=== PATIENT | male | born 1935 | race Two or more races ===

== ENCOUNTER 2018-09-11 11:30 | Inpatient (IN) | payer MEDICARE, BC ==
[~2018-09-11] VITALS: Ht 170.2 cm; Wt 60.8 kg
[2018-09-11 12:10] LABS: BASOPHILS % (AUTO) 0.5 % (0.0-2.0); EOSINOPHILS % (AUTO) 0.3 % (0.0-6.0); HEMATOCRIT 46 % (39-51); HEMOGLOBIN 15.2 g/dL (13.5-17.5); LYMPHOCYTES # (AUTO) 1.2 /CMM (0.8-4.8); LYMPHOCYTES % (AUTO) 12.9 % (20.0-44.0); MEAN CORPUSCULAR HGB CONC 33 g/dl (31.0-36.0); MEAN CORPUSCULAR VOLUME 96 fL (80-96); MONOCYTES # (AUTO) 0.7 /CMM (0.1-1.30); MONOCYTES % (AUTO) 6.8 % (2.0-12.0); NEUTROPHILS # (AUTO) 7.7 /CMM (1.8-8.9); NEUTROPHILS % (AUTO) 79.5 % (43.0-81.0); PLATELET COUNT (AUTO) 239 /CMM (150-450); RED BLOOD CELL COUNT(AUTO) 4.76 MIL/uL (4.5-6.0); WHITE BLOOD COUNT (AUTO) 9.7 K/uL (4.3-11.0)
[2018-09-11 12:20] LABS: CALCIUM, SERUM 8.8 mg/dL (8.5-10.1); CARBON DIOXIDE 30 mmol/L (21-32); CHLORIDE 104 mmol/L (98-107); CREATININE 0.7 mg/dL (0.6-1.3); GLUCOSE 103 mg/dL (74-106); POTASSIUM 3.9 mmol/L (3.5-5.1); SODIUM SERUM 140 mmol/L (136-145); UREA NITROGEN, BLOOD 17 mg/dL (7-18)
[2018-09-11 12:23] LABS: ALANINE AMINOTRANSFERASE 13 U/L (12-78); ALBUMIN 3.5 g/dL (3.4-5.0); ALCOHOL, BLOOD < 3 mg/dL (0-0); ALKALINE PHOSPHATASE 52 U/L (46-116); ASPARTATE AMINOTRANSFERASE 12 U/L (15-37); BILIRUBIN,DIRECT 0.1 mg/dL (0.0-0.2); BILIRUBIN,TOTAL 0.7 mg/dL (0.2-1.0); TOTAL PROTEIN, SERUM 7.3 g/dL (6.4-8.2)
[2018-09-11 12:24] LABS: ACETAMINOPHEN 0 ug/ml (10-30); SALICYLATE 0.9 mg/dL (2.8-20.0)
[2018-09-11 12:56] LABS: APPEARANCE,URINE CLEAR (CLEAR); BILIRUBIN,URINE NEGATIVE (NEGATIVE); BLOOD, URINE 1+ Ery/uL (NEGATIVE); COLOR,URINE YELLOW (YELLOW); KETONES,URINE NEGATIVE (NEGATIVE); LEUKOCYTE ESTERASE ,URINE NEGATIVE (NEGATIVE); NITRITE, URINE NEGATIVE (NEGATIVE); PH,URINE 6.5 (5.0-8.0); PROTEIN,URINE NEGATIVE (NEGATIVE); UGLUCOSE NEGATIVE (NEGATIVE); UROBILINOGEN,URINE 0.2 EU/dL (0.2)
[2018-09-11 13:22] LABS: BACTERIA,URINE Few /HPF (None Seen); SQUAMOUS EPITHELIAL CELL,UR Few /HPF (None Seen); WBC,URINE 0-2 /HPF (0-3)
[2018-09-11] MEDS ORDERED: MAG HYDROX/AL HYDROX/SIMETH 30 ML UDC PO PRN (14:30)
[2018-09-11] MEDS ORDERED: ACETAMINOPHEN 325 MG TABLET PO PRN (14:30)
[2018-09-11] MEDS ORDERED: MAGNESIUM HYDROXIDE 30 ML UDC PO PRN (14:30)
[2018-09-11] MEDS ORDERED: AMLO5TAB9 PO (14:32)
[2018-09-11 16:00] VITALS: BP 157/100
[2018-09-11] MEDS: LORAZEPAM 0.5 MG TABLET PO PRN (21:41)
[2018-09-11] MEDS: risperiDONE 1 MG TABLET PO SCH (22:00)
[2018-09-12 07:35] LABS: CHOLESTEROL 182 mg/dL (<200); HDL CHOLESTEROL 63 mg/dL (40-60); LDL 119 mg/dL (0-99); TRIGLYCERIDES 45 mg/dL (30-150)
[2018-09-12 07:36] LABS: ALANINE AMINOTRANSFERASE 17 U/L (12-78); ALBUMIN 3.9 g/dL (3.4-5.0); ALKALINE PHOSPHATASE 56 U/L (46-116); ASPARTATE AMINOTRANSFERASE 23 U/L (15-37); CALCIUM, SERUM 9.3 mg/dL (8.5-10.1); CARBON DIOXIDE 24 mmol/L (21-32); CHLORIDE 105 mmol/L (98-107); CREATININE 1.2 mg/dL (0.6-1.3); GLUCOSE 120 mg/dL (74-106); POTASSIUM 4.1 mmol/L (3.5-5.1); SODIUM SERUM 142 mmol/L (136-145); TOTAL PROTEIN, SERUM 7.7 g/dL (6.4-8.2); UREA NITROGEN, BLOOD 31 mg/dL (7-18)
[2018-09-12 08:00] VITALS: BP 122/73
[2018-09-12] MEDS: risperiDONE 1 MG TABLET PO PRN (09:02)
[2018-09-12] MEDS: AMLODIPINE BESYLATE 5 MG TABLET PO SCH (09:02)
[2018-09-12 16:00] VITALS: BP 103/76
[2018-09-12 19:43] VITALS: BP 129/71
[2018-09-12] MEDS: MIRTAZAPINE 15 MG TABLET PO SCH (21:48)
[2018-09-12] MEDS: risperiDONE 1 MG TABLET PO SCH (21:48)
[2018-09-12] MEDS: LORAZEPAM 0.5 MG TABLET PO PRN (23:13)
[2018-09-13 08:00] VITALS: BP 116/77
[2018-09-13] MEDS: AMLODIPINE BESYLATE 5 MG TABLET PO SCH (09:15)
[2018-09-13] MEDS: NITROFURANTOIN/NITROFURAN MAC 100 MG CAPSULE PO SCH ×2 (14:11→20:46)
[2018-09-13 20:00] VITALS: BP 152/86
[2018-09-13] MEDS: ZOLPIDEM TARTRATE 10 MG TABLET PO PRN (20:46)
[2018-09-13] MEDS: risperiDONE 1 MG TABLET PO SCH (20:46)
[2018-09-13] MEDS: MIRTAZAPINE 15 MG TABLET PO SCH (20:46)
[2018-09-14 08:00] VITALS: BP 160/63
[2018-09-14] MEDS: AMLODIPINE BESYLATE 5 MG TABLET PO SCH (08:03)
[2018-09-14] MEDS: NITROFURANTOIN/NITROFURAN MAC 100 MG CAPSULE PO SCH ×2 (08:03→21:35)
[2018-09-14 16:00] VITALS: BP 133/74
[2018-09-14 20:07] VITALS: BP 126/68
[2018-09-14] MEDS: risperiDONE 1 MG TABLET PO SCH (21:34)
[2018-09-14] MEDS: MIRTAZAPINE 15 MG TABLET PO SCH (21:34)
[2018-09-14] MEDS: ZOLPIDEM TARTRATE 10 MG TABLET PO PRN (22:05)
[2018-09-15 08:00] VITALS: BP 141/73
[2018-09-15] MEDS: NITROFURANTOIN/NITROFURAN MAC 100 MG CAPSULE PO SCH ×2 (09:00→21:00)
[2018-09-15] MEDS: AMLODIPINE BESYLATE 5 MG TABLET PO SCH (09:00)
[2018-09-15 16:00] VITALS: BP 133/68
[2018-09-15 20:00] VITALS: BP 130/67
[2018-09-15] MEDS: risperiDONE 1 MG TABLET PO SCH (21:27)
[2018-09-15] MEDS: MIRTAZAPINE 15 MG TABLET PO SCH (21:27)
[2018-09-16 08:00] VITALS: BP 150/78
[2018-09-16] MEDS: NITROFURANTOIN/NITROFURAN MAC 100 MG CAPSULE PO SCH ×2 (12:38→21:27)
[2018-09-16] MEDS: AMLODIPINE BESYLATE 5 MG TABLET PO SCH (12:38)
[2018-09-16] MEDS: risperiDONE 1 MG TABLET PO PRN (12:39)
[2018-09-16 16:04] VITALS: BP 128/63
[2018-09-16 20:00] VITALS: BP 132/77
[2018-09-16] MEDS: MIRTAZAPINE 15 MG TABLET PO SCH (21:27)
[2018-09-16] MEDS: risperiDONE 1 MG TABLET PO SCH (21:27)
[2018-09-16] MEDS: LORAZEPAM 0.5 MG TABLET PO PRN (23:11)
[2018-09-17 08:00] VITALS: BP 140/74
[2018-09-17] MEDS: NITROFURANTOIN/NITROFURAN MAC 100 MG CAPSULE PO SCH ×3 (09:00→21:31)
[2018-09-17] MEDS: AMLODIPINE BESYLATE 5 MG TABLET PO SCH ×2 (09:00→11:30)
[2018-09-17] MEDS: LORAZEPAM 0.5 MG TABLET PO PRN ×2 (09:14→11:30)
[2018-09-17 16:00] VITALS: BP 160/75
[2018-09-17 20:42] VITALS: BP 146/70
[2018-09-17 21:46] VITALS: BP 143/74
[2018-09-17] MEDS: risperiDONE 1 MG TABLET PO SCH (22:00)
[2018-09-17] MEDS: MIRTAZAPINE 15 MG TABLET PO SCH (22:00)
[2018-09-18] MEDS: risperiDONE 1 MG TABLET PO SCH ×2 (00:45→16:52)
[2018-09-18 08:00] VITALS: BP 147/73
[2018-09-18] MEDS: NITROFURANTOIN/NITROFURAN MAC 100 MG CAPSULE PO SCH ×2 (08:43→20:40)
[2018-09-18] MEDS: LORAZEPAM 0.5 MG TABLET PO PRN (09:26)
[2018-09-18] MEDS: AMLODIPINE BESYLATE 5 MG TABLET PO SCH (09:26)
[2018-09-18 16:00] VITALS: BP 144/88
[2018-09-18] MEDS: MIRTAZAPINE 15 MG TABLET PO SCH (16:52)
[2018-09-18] MEDS ORDERED: risperiDONE 1 MG TABLET PO SCH (17:00)
[2018-09-18] MEDS ORDERED: MIRTAZAPINE 15 MG TABLET PO SCH (20:00)
[2018-09-18 20:24] VITALS: BP 144/61
[2018-09-18] MEDS: ZOLPIDEM TARTRATE 10 MG TABLET PO PRN (20:40)
[2018-09-19 08:00] VITALS: BP 141/71
[2018-09-19] MEDS: NITROFURANTOIN/NITROFURAN MAC 100 MG CAPSULE PO SCH ×2 (10:40→21:24)
[2018-09-19] MEDS: AMLODIPINE BESYLATE 5 MG TABLET PO SCH (10:41)
[2018-09-19 16:00] VITALS: BP 139/68
[2018-09-19] MEDS: MIRTAZAPINE 15 MG TABLET PO SCH (17:13)
[2018-09-19] MEDS: risperiDONE 1 MG TABLET PO SCH (17:13)
[2018-09-19] MEDS ORDERED: risperiDONE 1 MG TABLET PO PRN (18:00)
[2018-09-19 20:31] VITALS: BP 113/63
[2018-09-19] MEDS: ZOLPIDEM TARTRATE 10 MG TABLET PO PRN (21:54)
[2018-09-20 06:52] LABS: BASOPHILS % (AUTO) 0.7 % (0.0-2.0); EOSINOPHILS % (AUTO) 1.7 % (0.0-6.0); HEMATOCRIT 40 % (39-51); HEMOGLOBIN 13.3 g/dL (13.5-17.5); LYMPHOCYTES # (AUTO) 1.6 /CMM (0.8-4.8); LYMPHOCYTES % (AUTO) 22.8 % (20.0-44.0); MEAN CORPUSCULAR HGB CONC 33 g/dl (31.0-36.0); MEAN CORPUSCULAR VOLUME 94 fL (80-96); MONOCYTES # (AUTO) 0.9 /CMM (0.1-1.30); MONOCYTES % (AUTO) 13.2 % (2.0-12.0); NEUTROPHILS # (AUTO) 4.3 /CMM (1.8-8.9); NEUTROPHILS % (AUTO) 61.6 % (43.0-81.0); PLATELET COUNT (AUTO) 192 /CMM (150-450); RED BLOOD CELL COUNT(AUTO) 4.25 MIL/uL (4.5-6.0)
[2018-09-20 07:22] LABS: CARBON DIOXIDE 26 mmol/L (21-32); CHLORIDE 110 mmol/L (98-107); CREATININE 0.9 mg/dL (0.6-1.3); GLUCOSE 85 mg/dL (74-106); MAGNESIUM 1.9 mg/dL (1.8-2.4); PHOSPHORUS 3.5 mg/dL (2.5-4.9); POTASSIUM 3.8 mmol/L (3.5-5.1); SODIUM SERUM 144 mmol/L (136-145); UREA NITROGEN, BLOOD 19 mg/dL (7-18)
[2018-09-20 08:00] VITALS: BP 107/61
[2018-09-20] MEDS ORDERED: risperiDONE 0.25 MG TABLET PO SCH (08:00)
[2018-09-20] MEDS: NITROFURANTOIN/NITROFURAN MAC 100 MG CAPSULE PO SCH (08:05)
[2018-09-20] MEDS: AMLODIPINE BESYLATE 5 MG TABLET PO SCH (08:05)
[2018-09-20] MEDS: risperiDONE 0.25 MG TABLET PO SCH (08:05)
[2018-09-20 16:00] VITALS: BP 124/71
[2018-09-20] MEDS: risperiDONE 1 MG TABLET PO SCH (17:15)
[2018-09-20] MEDS: MIRTAZAPINE 15 MG TABLET PO SCH (17:15)
[2018-09-20 20:00] VITALS: BP 131/68
[2018-09-21 08:00] VITALS: BP 112/54
[2018-09-21] MEDS: risperiDONE 0.25 MG TABLET PO SCH ×2 (08:00→10:38)
[2018-09-21] MEDS: AMLODIPINE BESYLATE 5 MG TABLET PO SCH (08:51)
[2018-09-21 16:00] VITALS: BP 142/85
[2018-09-21] MEDS: MIRTAZAPINE 15 MG TABLET PO SCH (16:43)
[2018-09-21] MEDS: risperiDONE 1 MG TABLET PO SCH (16:43)
[2018-09-21 20:47] VITALS: BP 123/74
[2018-09-21] MEDS: ZOLPIDEM TARTRATE 10 MG TABLET PO PRN (21:00)
[2018-09-22 08:00] VITALS: BP 117/59
[2018-09-22] MEDS: risperiDONE 0.25 MG TABLET PO SCH (08:36)
[2018-09-22] MEDS: AMLODIPINE BESYLATE 5 MG TABLET PO SCH (08:37)
[2018-09-22 16:07] VITALS: BP 131/76
[2018-09-22] MEDS: risperiDONE 1 MG TABLET PO SCH (17:33)
[2018-09-22] MEDS: MIRTAZAPINE 15 MG TABLET PO SCH (17:52)
[2018-09-22 20:00] VITALS: BP 118/63
[2018-09-23 08:11] VITALS: BP 129/70
[2018-09-23] MEDS: risperiDONE 0.25 MG TABLET PO SCH (08:47)
[2018-09-23] MEDS: AMLODIPINE BESYLATE 5 MG TABLET PO SCH (08:47)
[2018-09-23 16:43] VITALS: BP 116/51
[2018-09-23] MEDS: risperiDONE 1 MG TABLET PO SCH (17:37)
[2018-09-23] MEDS: MIRTAZAPINE 15 MG TABLET PO SCH (17:37)
[2018-09-23 20:00] VITALS: BP 106/59
[2018-09-24 08:00] VITALS: BP 123/77
[2018-09-24] MEDS: AMLODIPINE BESYLATE 5 MG TABLET PO SCH (08:34)
[2018-09-24] MEDS: risperiDONE 0.25 MG TABLET PO SCH (08:34)
[2018-09-24 16:00] VITALS: BP 140/78
[2018-09-24] MEDS: risperiDONE 1 MG TABLET PO SCH (17:33)
[2018-09-24] MEDS: MIRTAZAPINE 15 MG TABLET PO SCH (17:33)
[2018-09-24 20:13] VITALS: BP 125/74
[2018-09-24] MEDS: ZOLPIDEM TARTRATE 10 MG TABLET PO PRN (20:36)
[2018-09-25 08:00] VITALS: BP 129/72
[2018-09-25] MEDS: AMLODIPINE BESYLATE 5 MG TABLET PO SCH (08:59)
[2018-09-25] MEDS: risperiDONE 0.25 MG TABLET PO SCH (09:00)
[2018-09-25 16:14] VITALS: BP 140/89
[2018-09-25] MEDS: risperiDONE 1 MG TABLET PO SCH (17:27)
[2018-09-25] MEDS: MIRTAZAPINE 15 MG TABLET PO SCH (17:27)
[2018-09-25 20:06] VITALS: BP 111/67
[2018-09-26 08:00] VITALS: BP 144/79
[2018-09-26] MEDS: risperiDONE 0.25 MG TABLET PO SCH (08:23)
[2018-09-26 08:24] VITALS: BP 144/79
[2018-09-26] MEDS: AMLODIPINE BESYLATE 5 MG TABLET PO SCH (08:24)
== END 2018-09-26 16:30 | disposition home or self-care (01) | DRG 885 ==
LOC: ER 11:34 → GPS 13:43
PROVIDERS: ADMIT Psychiatry & Neurology Psychiatry; ATTEND Psychiatry & Neurology Psychiatry
DX: F29 Unspecified psychosis not due to a substance or known physiological condition (principal); F03.91 Unspecified dementia, unspecified severity, with behavioral disturbance; N39.0 Urinary tract infection, site not specified; G93.40 Encephalopathy, unspecified; I10 Essential (primary) hypertension; Z73.6 Limitation of activities due to disability
CPT/HCPCS: 36415; 80048-TC; 80053-TC; 80061-TC; 80076-TC; 80305; 81000-TC; 83735-TC; 83970; 84100-TC; 84443-TC; 85025-TC; G0480